=== PATIENT | female | born 1985 | race Caucasian/White ===

== ENCOUNTER 2024-06-02 09:57 | Outpatient (CLI) | payer OTHER, SELFPAY | END 2024-06-02 09:58 | disposition home or self-care (01) | LOC: NFLDREF 06-05 05:26 | PROVIDERS: Visit Provider Advanced Practice Midwife | DX: Z34.93 Encounter for supervision of normal pregnancy, unspecified, third trimester (principal); Z3A.29 29 weeks gestation of pregnancy | CPT/HCPCS: 86592 ==

== ENCOUNTER 2024-07-25 11:42 | Outpatient (CLI) | payer OTHER, SELFPAY ==
[2024-07-26 10:34] LABS: Strep B DNA Probe Negative (Negative)
[2024-07-26 10:50] LABS: Strep B Susceptibility Needed? No
== END 2024-07-25 11:43 | disposition home or self-care (01) ==
LOC: NFLDREF 11:42
PROVIDERS: Visit Provider Midwife
DX: Z34.83 Encounter for supervision of other normal pregnancy, third trimester (principal)
CPT/HCPCS: 86787; 87081; 87653

== ENCOUNTER 2024-08-19 17:19 | Inpatient (IN) | payer OTHER, SELFPAY ==
[2024-08-19] VITALS (12 sets, daily range): BP systolic 103–151; BP diastolic 59–87; PULSE 58–79; RESP 16; TEMP 36.9; O2SAT 92–100; BMI 25.0
[2024-08-19] MEDS: LACTATED RINGERS 1000 ML 1,000 ML IV (17:15)
--- NOTE | 2024-08-19 17:18 | W.PM.LDBA ---
Subjective History of Present Illness Date Seen: 08/19/24 Narrative: Patient is being admitted to Labor and Delivery for active. She is a 38 year old at 40 5/7 weeks gestation. Her full history and physical was dictated by me on 07/25/24. Please see this for details. Specific Issues/Plans : Charanjit It is a girl! HPI completed 07/25/24 by Pau LAWS Wants a tubal IF unplanned . Please have OB MD consult on admit, just in case. :) # Hx of Leep, 2010 # AMA Genetic screening Level II US: Pt uncertain if she had but did do anatomy US # Hx of with first two pregnancies, term with other Per mother: 1st 36 (delivered at 37.0) weeks, 2nd 35.5 weeks Records from [facility] say 1st was 37.0, 2nd 36.6 # Placenta abruption during delivery with 1st # 2nd child has midline kidney and one normal kidney # Breech at 32 weeks, RESOLVED Vertex at 35 weeks, consider US on admission New OB Labs on 03/01/24: Blood type: O+, antibody screen negative.??? Hgb: 13.0??? Platelets: 176??? Rubella: Immune??? Varicella:unknown, not found in records- immune tested here RPR: non-reactive??? HBsAg: non-reactive???(antibodies not drawn) Hep C: negative? HIV: negative???(HIV 1&2/p24 screen) UC: No growth (midstream)? GC/Chlamydia: negative/negative???(DNA/DNA) Pap (01/06/24): NILM Genetic screening: not found in records? ? 1st trimester: not found in records??? Anatomy scan: 03/23/24 Impression: 1. Cervical length measures 4.9-5.2 cm vaginally??? 2. Normal visualized anatomy 3. Live woodward gestation 4. EFW 26.5% ?TDAP:06/03/24 OB - Problem Based A/P Additional Plan (1) Supervision of high risk in third trimester: Status: Acute (2) Advanced maternal age in multigravida: Status: Acute Plan ASSESSMENT:?? 38 at 40 5/7 weeks gestation?? complicated by:??AMA Labor type:Spontaneous, Active labor?? Category 1 FHR pattern.??? Labor complicated by: none?? GBS negative? PLAN:?? 1. Routine intrapartum cares as ordered. Continue with expectant management?? 2. Monitoring per policy, intermittent?? 3. Planning medicated . Candidate for analgesia of choice.??Desires epidural so prepping for that quickly? 4. Patient encouraged to reposition and ambulate to promote physiologic labor and .?? 5. Anticipate ? OB Result Labs Blood Type: O (+) positive Rubella: immune RPR/VDLR: nonreactive GBS Status: negative HBsAG: negative OB Exam Physical Exam Vital signs: Pulse Ox 100 08/19/24 17:13 Narrative: Vitals Reviewed Constitutional:? Alert and oriented x3 HEENT:? Normocephalic, atraumatic Lungs:? Clear to auscultation bilaterally Heart:? Regular rate and rhythm, no murmur, rub or gallop Abdomen:? Soft, nontender, and gravid. Vertex by Timbo's, confirmed with bedside US Extremities:? No edema or erythema Cervix: deferred due to advanced labor, desire for epidural first NST: 120 bpm/moderate variability/accelerations absent so far/decelerations absent/contractions q 3 min
[2024-08-19] MEDS: OXYTOCIN 30 unit/500 ML in NS 30 UNIT/500 ML BAG 300 UNIT IVPB (17:37)
[2024-08-19 17:44] LABS: Basophils Absolute Auto 0.02 K/uL (0.00-0.30); Basophils Percent Auto 0.2 % (0.0-3.0); Eosinophils Absolute Auto 0.05 K/uL (0.00-0.50); Eosinophils Percent Auto 0.5 % (0.0-7.0); Hematocrit 40.3 % (33.0-51.0); Hemoglobin* 13.4 gm/dL (12.0-16.0); Immature Granulocytes Abs Auto 0.03 K/uL (0.00-0.30); Immature Granulocytes Pct Auto 0.3 %; Lymphocytes Percent Auto 13.7 % (20-44); Mean Corpuscular HGB Conc 33 gm/dL (32-36); Mean Corpuscular Hemoglobin 28 pg (26-34); Mean Corpuscular Volume 85 fL (80-100); Monocytes Percent Auto 5.4 % (0.0-11.0); Neutrophils Percent Auto 79.9 % (42.0-72.0); Platelet Count* 128 K/uL (140-440); RDW Coefficient of Variation % 13.7 % (11.5-15.5); Red Blood Count 4.75 m/uL (4.00-5.20); White Blood Count* 10.91 K/uL (4.50-11.00)
[2024-08-19 17:47] LABS: Slide Review Reflex No
--- NOTE | 2024-08-19 18:04 | W.PM.OBVAGDE ---
OB Procedure Vag Delivery Mother Details Mother Details: The patient is a 38 year-old, 7, Para 4115, admitted on 08/19/24 at 40 5/7 Days gestation. Admission Date: 08/19/24 Additional Details Amniotic Membrane Status: AROM (per patient request) Amniotic Membrane Rupture Date: 08/19/24 Amniotic Membrane Rupture Time: 17:29 Amniotic Membrane Fluid Description: Meconium Stained (peds notified) Analgesia/Anesthesia Type: None Waterbirth: No Pitcoin: Yes (for [facility] only) Intrapartal Events: None Delivery augmentation: rupture of membranes Labor Onset: 14:30 Complete: 17:34 Pushin:34 Heart: heart tones during second stage were category 2 with rapid descent and duration of 2nd stage was only technically 2 minutes Delivery Details Delivery Date: 08/19/24 Delivery Time: 17:36 Route of delivery: Gender: Female Infant Viability: Alive; Heart Rate Present Position at Delivery: OA Delivery Details: Patient was admitted for active labor and progressed normally but she did request AROM so she could be done sooner.. AROM noted at 1729 with moderate meconium, copious amount. Patient was complete at 1734 and pushing at 1734. of a viable female at 1736 in hands and knees. Vertex delivered OA. Nuchal cord x 2, wrapped around the baby's core x 1 and the arm also. No shoulder dystocia. Body delivered easily and without incident. passed to mothers abdomen with a vigorous cry. Cord was clamped and cut at > 5 minutes. APGARS were 8 at one minute and 9 at five minutes respectively. Mouth was bulb suctioned. Intact placenta with a 3 vessel cord delivered spontaneously at 1744. Fundus firm. No lacerations identified. QBL 75 cc. Mother and baby stable; mother plans to breastfeed. Infant weight pending.? ? 1 Minute Interval Total Score: 8 5 Minute Interval Total Score: 9 Additional Details Shoulder Dystocia: No Placenta Delivery Time: 17:44 Placental Delivery Description: Spontaneous Procedure Done: Global Blood Loss: 75 Laceration: None Episiotomy Description: None Blood Loss Measurement Type: QBL Bakri Used: No Sponge/Need Count Correct: Yes Cord Vessel Description: 3 Vessels, Nuchal Cord (x2), Tight, Clamped/Cut, Around Body (x1) and Around Extremity (x1) Event Summary Status: Mother and infant were stable after delivery. Disposition: floor
[2024-08-19] MEDS: IBUPROFEN 600 MG TABLET PO (18:25)
[2024-08-20 01:40] VITALS: BP 105/69; PULSE 61; RESP 16; TEMP 36.6; O2SAT 97
[2024-08-20] MEDS: IBUPROFEN 600 MG TABLET PO ×2 (01:44→07:21)
[2024-08-20 04:20] VITALS: BP 101/66; PULSE 64; RESP 16; TEMP 36.7; O2SAT 97
[2024-08-20 07:33] LABS: Hemoglobin* 10.7 gm/dL (12.0-16.0)
--- NOTE | 2024-08-20 07:35 | P.DS_ITS ---
DS: Providers Provider Date Seen: 08/20/24 Date of admission: 08/19/24 17:19 Primary care physician: Not a Local Provider Admitting Clinician: Ania Hebert CNM Attending Physician on discharge: Margaret Zaman CNM Date of Discharge: 08/20/24 DS: Diagnosis Discharge Diagnosis (1) care and examination immediately after delivery: Status: Acute (2) Lactating mother: Status: Acute Exam Narrative: Exam Narrative: VSS, afebrile GENERAL APPEARANCE: ?normal affect, alert, no distress MOOD: ?appropriate HEENT: normocephalic, neck supple, full ROM CHEST: ?Symmetrical chest wall movement. ?Normal respiratory effort. ?Clear to auscultation HEART: ?regular rate and rhythm ABDOMEN: ?soft, non-tender. Uterine fundus is firm, at Umbilicus, Midline and is appropriate for the stage of recovery. ?Bowel sounds present. PERINEUM: ?mild edema of the perineum, intact. EXTREMITIES: ?normal and trace edema Const: Vital Signs, click to edit/add: Vital Signs - 24 hr 08/19/24 17:11 08/19/24 17:13 08/19/24 17:18 Temperature Pulse Rate 67 Pulse Rate [Pulse Oximeter] Respiratory Rate Blood Pressure 125/76 Blood Pressure [Le ft Arm] Pulse Oximetry 92 100 Oxygen Delivery Me thod 08/19/24 17:46 08/19/24 17:46 08/19/24 18:03 Temperature Pulse Rate 79 Pulse Rate [Pulse Oximeter] Respiratory Rate Blood Pressure 138/64 122/77 Blood Pressure [Le ft Arm] Pulse Oximetry Oxygen Delivery Me thod 08/19/24 18:03 08/19/24 18:13 08/19/24 18:16 Temperature 98.4 F Pulse Rate 61 64 Pulse Rate [Pulse Oximeter] Respiratory Rate 16 Blood Pressure 121/79 Blood Pressure [Le ft Arm] Pulse Oximetry Oxygen Delivery Me thod 08/19/24 18:31 08/19/24 18:46 08/19/24 19:03 Temperature Pulse Rate 58 L 73 Pulse Rate [Pulse Oximeter] Respiratory Rate Blood Pressure 151/87 H 144/64 H 122/59 L Blood Pressure [Le ft Arm] Pulse Oximetry Oxygen Delivery Me thod 08/19/24 19:03 08/19/24 19:16 08/19/24 19:16 Temperature Pulse Rate 64 60 Pulse Rate [Pulse Oximeter] Respiratory Rate Blood Pressure 114/62 Blood Pressure [Le ft Arm] Pulse Oximetry Oxygen Delivery Me thod 08/19/24 19:30 08/19/24 19:30 08/20/24 01:40 Temperature 97.9 F Pulse Rate 62 Pulse Rate [Pulse Oximeter] 61 Respiratory Rate 16 Blood Pressure 103/61 Blood Pressure [Le ft Arm] 105/69 Pulse Oximetry 97 Oxygen Delivery Me thod Room Air 08/20/24 04:20 Temperature 98.0 F Pulse Rate Pulse Rate [Pulse Oximeter] 64 Respiratory Rate 16 Blood Pressure Blood Pressure [Le ft Arm] 101/66 Pulse Oximetry 97 Oxygen Delivery Me thod Room Air Documenting provider has reviewed patient's vital signs: yes OB - DS: Summary Hospital Course Hospital Course: Norma is a 38 y.o. who was admitted to [facility] & [facility] for labor. ?She had an uncomplicated NVD.?The patient feels well. ?The pain is well controlled with current medications. ?She has no new complaints. ?She is breast feeding and reports things are going well.? the patient has done well.? Vitals have been stable.? She has remained afebrile.? Has a good appetite, is t olerating a general diet. ?She is voiding without difficulty.? She is passing gas and has not had a bowel movement.? She is ambulating and denies any dizziness.? Has Small amount of rubra lochia. ?She is planning nothing for prevention.She is requesting discharge this evening at 24 hours. Peripartum Data Infant delivery method: Vaginal Laceration description: None complications: none Gender: Female Infant Discharge Plan: Home A Infant Gender: Female Infant Discharge Plan: Home Status at Discharge Functional status at discharge: independent ambulation Overall status at discharge: patient is progressing back to baseline Time Spent with Patient Time attestation: Total time spent providing and/or coordinating discharge services: Time spent: Less than 30 minutes Discharge Plan Discharge Disposition: Home, Self-Care Date of Admission: 08/19/24 17:19 Attending Provider on Discharge: Margaret Zaman Primary Care Provider: Provider,Not a Local Condition: Stable Anticipated Discharge Date/Time: 08/20/24 19:00 Discharge Medications: New docusate sodium 100 mg Capsule 100 mg PO DAILY Qty: 90 0RF ibuprofen 600 mg Tablet 600 mg PO Q6H PRNQty: 60 0RF acetaminophen 500 mg Tablet 1,000 mg PO Q6H PRNQty: 0 0RF Continued One-A-Day -1 27 mg iron- 800 mcg-235 mg capsule 1 cap PO DAILY Discharge Orders: Discharge Order (Routine); Ordered 08/20/24 Ordered By: Margaret Zaman Patient Education: OB Over the Counter Medication Information, OB Vaginal/Breast Feeding Activity Level: Activity as Tolerated Discharge Diet: Regular Follow Up Appointments: [facility] [Provider Group] Forms: [facility] Info Instructions
[2024-08-20] MEDS: DOCUSATE SODIUM 100 MG CAPSULE PO (08:56)
[2024-08-20 09:00] VITALS: BP 117/74; PULSE 63; RESP 16; O2SAT 96
[2024-08-20 11:54] VITALS: BP 109/72; PULSE 65; RESP 16; TEMP 36.6; O2SAT 96
[2024-08-20 15:53] VITALS: BP 111/71; PULSE 55; RESP 16; TEMP 36.6; O2SAT 98
[2024-08-20] MEDS: ACETAMINOPHEN 500 MG TABLET 1000 MG PO (16:02)
[2024-08-21 17:45] LABS: Rapid Plasma Reagin (RPR) Non Reactive (Non Reactive)
== END 2024-08-20 18:25 | disposition home or self-care (01) | DRG 807 ==
LOC: US 17:19 → OB 17:19
PROVIDERS: Admitting Provider Midwife; Visit Provider Midwife
DX: O48.0 Post-term pregnancy (principal); Z37.0 Single live birth; O77.0 Labor and delivery complicated by meconium in amniotic fluid; Z3A.40 40 weeks gestation of pregnancy
CPT/HCPCS: 36415; 85018; 85025; 86592; 86850; 86900; 86901; A9270; J3010; J7120

== ENCOUNTER 2025-01-13 10:42 | Outpatient (CLI) | payer OTHER, SELFPAY | END 2025-01-13 10:43 | disposition home or self-care (01) | PROVIDERS: Visit Provider Advanced Practice Midwife | DX: O90.6 Postpartum mood disturbance (principal) | CPT/HCPCS: 84443 ==